=== PATIENT | female | born 1985 | race Two or more races ===

== ENCOUNTER 2022-10-22 12:51 | Inpatient (IN) | payer OTHER ==
[~2022-10-22] VITALS: Ht 152.4 cm; Wt 67.6 kg
[2022-10-22] MEDS ORDERED: SODIUM CHLORIDE 0.9% 500 ML IV ONE (13:30)
[2022-10-22 13:47] LABS: Basophils % (auto) 0.3 % (0.0-2.0); Eosinophils # (auto) 0 10 ^3/uL (0-0.8); Hematocrit 25.7 % (36.0-46.0); Hemoglobin 8.1 g/dL (12.2-16.2); Lymphocytes # (auto) 1.4 10 ^3/uL (0.4-5.4); Mean Corpuscular Hemoglobin 32.2 pg (28.0-32.0); Mean Corpuscular Hgb Conc. 31.5 g/dL (32.0-36.0); Mean Corpuscular Volume 102.2 fL (80.0-100.0)
[2022-10-22 13:49] LABS: Basophils # (auto) 0 10 ^3/uL (0-0.2); Eosinophils % (auto) 0.2 % (0.0-7.0); Lymphocytes % (auto) 8.6 % (10.0-50.0); Monocytes # (auto) 1.8 10 ^3/uL (0-1.3); Monocytes % (auto) 11.4 % (0.0-12.0); Neutrophils # (auto) 12.6 10 ^3/uL (1.6-8.6); Neutrophils % (auto) 79.5 % (37.0-80.0); Red Blood Cells 2.51 10^6/uL (4.0-5.20); Red Cell Distribution Width 18.5 % (11.8-14.3); White Blood Cell 15.9 10^3/uL (4.4-10.8)
[2022-10-22 14:12] LABS: Albumin 2.6 g/dL (3.4-5.0); Calcium 7.6 mg/dL (8.5-10.1); Potassium 3.4 mmol/L (3.5-5.1)
[2022-10-22 14:16] LABS: BUN/Creatinine Ratio 1.9; Bilirubin, Total 1.9 mg/dL (0.2-1.0); Total Protein 7.4 g/dL (6.4-8.2)
[2022-10-22 16:00] LABS: Urine Bacteria FEW /hpf (None Seen); Urine Blood Negative /uL (Negative); Urine Specific Gravity 1.004 (1.001-1.035); Urine WBC 1 /hpf (0 - 5)
[2022-10-22 16:09] LABS: Alcohol, Urine < 3.0 mg/dL (0-10); Amphetamine Screen, Urine NEGATIVE (NEGATIVE); Barbiturate Scree,Urine NEGATIVE (NEGATIVE); Benzodiazephine Screen, Urine NEGATIVE (NEGATIVE); Cannabinoid Screen, Urine NEGATIVE (NEGATIVE); Cocaine Screen, Urine NEGATIVE (NEGATIVE); Opiate Scree,Urine NEGATIVE (NEGATIVE); Phencyclidine Screen, Urine NEGATIVE (NEGATIVE)
[2022-10-22] MEDS: LEVALBUTEROL HCL 1.25 MG/3 ML NEB NEB SCH (18:39)
[2022-10-22] MEDS ORDERED: AZITHROMYCIN 500MG/ 250ML 250 ML IV ONE (19:45)
[2022-10-22] MEDS ORDERED: POTASSIUM CHL 20 Meq TABLET PO ONE (19:45)
[2022-10-22] MEDS ORDERED: DOCUSATE SOD 100 MG CAP PO PRN (21:30)
[2022-10-22] MEDS ORDERED: ACETAMINOPHEN 325 MG TAB PO PRN (21:30)
[2022-10-22] MEDS ORDERED: ONDANSETRON HCL 4 MG/2 ML VIAL IV PRN (21:30)
[2022-10-22] MEDS: ATORVASTATIN 20 MG TAB PO SCH (21:54)
[2022-10-22] MEDS ORDERED: MORPHINE SULFATE INJ 2 MG/ml SYRG IV PRN (23:15)
[2022-10-22] MEDS ORDERED: NITROGLYCERIN 0.4 MG SL TAB SL PRN (23:15)
[2022-10-22] MEDS: SODIUM CHLORIDE 0.9% 1,000 ML IV SCH (23:45)
[2022-10-22] MEDS: cefTRIAXone 1GM/50ML D5W 50 ML IV SCH (23:54)
[2022-10-23 00:10] VITALS: BP 119/72
[2022-10-23] MEDS: LEVALBUTEROL HCL 1.25 MG/3 ML NEB NEB SCH ×4 (06:00→19:02)
[2022-10-23 07:22] LABS: Basophils # (auto) 0.1 10 ^3/uL (0-0.2); Basophils % (auto) 0.4 % (0.0-2.0); Eosinophils # (auto) 0.1 10 ^3/uL (0-0.8); Eosinophils % (auto) 0.4 % (0.0-7.0); Hematocrit 24.7 % (36.0-46.0); Hemoglobin 7.9 g/dL (12.2-16.2); Lymphocytes # (auto) 1.8 10 ^3/uL (0.4-5.4); Lymphocytes % (auto) 11.4 % (10.0-50.0); Mean Corpuscular Hgb Conc. 31.9 g/dL (32.0-36.0); Mean Corpuscular Volume 106.8 fL (80.0-100.0); Monocytes % (auto) 12.4 % (0.0-12.0); Neutrophils % (auto) 75.4 % (37.0-80.0); Red Blood Cells 2.31 10^6/uL (4.0-5.20); Red Cell Distribution Width 18.4 % (11.8-14.3); White Blood Cell 15.9 10^3/uL (4.4-10.8)
[2022-10-23 07:30] LABS: Albumin 2.6 g/dL (3.4-5.0); Calcium 7.5 mg/dL (8.5-10.1); Potassium 3.1 mmol/L (3.5-5.1)
[2022-10-23 07:32] LABS: BUN/Creatinine Ratio 3.6
[2022-10-23 07:41] LABS: Bilirubin, Total 1.8 mg/dL (0.2-1.0); Total Protein 7.9 g/dL (6.4-8.2)
[2022-10-23] MEDS: ASPirin 81 mg TAB PO SCH (09:23)
[2022-10-23] MEDS: SODIUM CHLORIDE 0.9% 1,000 ML IV SCH (09:42)
[2022-10-23] MEDS ORDERED: FAMOTIDINE (10MG/ML) 2ML VL IV SCH (10:00)
[2022-10-23 10:36] VITALS: BP 99/52
[2022-10-23] MEDS ORDERED: MULT1TAB99 PO (11:33)
[2022-10-23 13:00] VITALS: BP 99/52
[2022-10-23 17:00] VITALS: BP 104/61
[2022-10-23 20:00] VITALS: BP 98/55
[2022-10-23] MEDS: ATORVASTATIN 20 MG TAB PO SCH (21:31)
[2022-10-23] MEDS: cefTRIAXone 1GM/50ML D5W 50 ML IV SCH (21:31)
[2022-10-23 22:00] VITALS: BP_SYST 142; BP_SYST 98; BP_DIAS 55; BP_DIAS 72
[2022-10-24] VITALS (8 sets, daily range): BP systolic 93–159; BP diastolic 56–83
[2022-10-24] MEDS: LEVALBUTEROL HCL 1.25 MG/3 ML NEB NEB SCH ×4 (00:07→23:35)
[2022-10-24 06:17] LABS: Basophils # (auto) 0.1 10 ^3/uL (0-0.2); Eosinophils # (auto) 0.1 10 ^3/uL (0-0.8); Hemoglobin 7.5 g/dL (12.2-16.2); Lymphocytes # (auto) 1.7 10 ^3/uL (0.4-5.4); Mean Corpuscular Hgb Conc. 31.8 g/dL (32.0-36.0); Monocytes # (auto) 1.4 10 ^3/uL (0-1.3)
[2022-10-24 06:20] LABS: Basophils % (auto) 0.6 % (0.0-2.0); Eosinophils % (auto) 1.1 % (0.0-7.0); Hematocrit 23.4 % (36.0-46.0); Lymphocytes % (auto) 14.2 % (10.0-50.0); Mean Corpuscular Hemoglobin 32.7 pg (28.0-32.0); Mean Corpuscular Volume 102.7 fL (80.0-100.0); Monocytes % (auto) 11.6 % (0.0-12.0); Neutrophils # (auto) 8.5 10 ^3/uL (1.6-8.6); Neutrophils % (auto) 72.5 % (37.0-80.0); Red Blood Cells 2.28 10^6/uL (4.0-5.20); Red Cell Distribution Width 18.3 % (11.8-14.3); White Blood Cell 11.8 10^3/uL (4.4-10.8)
[2022-10-24] MEDS: SODIUM CHLORIDE 0.9% 1,000 ML IV SCH (06:49)
[2022-10-24] MEDS: ASPirin 81 mg TAB PO SCH (09:23)
[2022-10-24 11:19] LABS: Chloride 106 mmol/L (98-107); Potassium 3.2 mmol/L (3.5-5.1); Sodium 138 mmol/L (136-145)
[2022-10-24 11:42] LABS: Albumin 2.3 g/dL (3.4-5.0); Anion Gap 13 (5-15); BUN/Creatinine Ratio 4.7; Blood Urea Nitrogen 2 mg/dL (7-18); Calcium 7.5 mg/dL (8.5-10.1); Carbon Dioxide 19 mmol/L (21-32); GFR African American 210 mL/min; GFR Non-African American 174 mL/min; Glucose 90 mg/dL (74-106)
[2022-10-24 11:44] LABS: Alanine Aminotransferase 21 U/L (13-56); Alkaline Phosphatase 306 U/L (45-117); Aspartate Aminotransferase 120 U/L (15-37); Bilirubin, Total 1.6 mg/dL (0.2-1.0); Total Protein 6.8 g/dL (6.4-8.2)
[2022-10-24] MEDS ORDERED: POTASSIUM CHL 20 Meq TABLET PO ONE (15:15)
[2022-10-24 17:24] LABS: % Iron Saturation 8.6 % (15-50)
[2022-10-24] MEDS: cefTRIAXone 1GM/50ML D5W 50 ML IV SCH (21:47)
[2022-10-24] MEDS: ATORVASTATIN 20 MG TAB PO SCH (21:47)
[2022-10-24] MEDS: HYDROcodone-ACET 5/325MG TAB PO PRN (21:58)
[2022-10-25] VITALS (7 sets, daily range): BP systolic 99–128; BP diastolic 58–70
[2022-10-25] MEDS: SODIUM CHLORIDE 0.9% 1,000 ML IV SCH ×2 (00:25→16:20)
[2022-10-25] MEDS: HYDROcodone-ACET 5/325MG TAB PO PRN ×2 (06:22→21:31)
[2022-10-25] MEDS: LEVALBUTEROL HCL 1.25 MG/3 ML NEB NEB SCH (06:31)
[2022-10-25] MEDS: ASPirin 81 mg TAB PO SCH (10:30)
[2022-10-25] MEDS ORDERED: LEVALBUTEROL HCL 1.25 MG/3 ML NEB NEB PRN (10:30)
[2022-10-25] MEDS ORDERED: IOHEXOL 350 MG/ML 100ML IJ ONE (10:33)
[2022-10-25] MEDS ORDERED: POTASSIUM EFFERVESENT TAB 25 MEQ PO ONE (13:45)
[2022-10-25 15:09] LABS: Hemoglobin 8.7 g/dL (12.2-16.2)
[2022-10-25 15:18] LABS: Folate (Folic Acid) 5.73 ng/mL (5.38-24)
[2022-10-25] MEDS: MAGNESIUM SULFATE 1GM/100ML 100 ML IV SCH ×3 (21:32→23:30)
[2022-10-25] MEDS: ATORVASTATIN 20 MG TAB PO SCH (21:32)
[2022-10-26] MEDS ORDERED: guaiFENesin-DM 100/10mg/5ml SYR PO PRN (03:15)
[2022-10-26 05:00] VITALS: BP 104/88
[2022-10-26 08:00] VITALS: BP 101/65
[2022-10-26] MEDS: ASPirin 81 mg TAB PO SCH (08:21)
[2022-10-26] MEDS: SODIUM CHLORIDE 0.9% 1,000 ML IV SCH (08:29)
[2022-10-26 09:00] VITALS: BP 101/65
[2022-10-26] MEDS: HYDROcodone-ACET 5/325MG TAB PO PRN ×2 (09:20→16:47)
[2022-10-26 11:03] LABS: Basophils # (auto) 0.1 10 ^3/uL (0-0.2); Eosinophils # (auto) 0.2 10 ^3/uL (0-0.8); Monocytes # (auto) 1.5 10 ^3/uL (0-1.3)
[2022-10-26 11:06] LABS: Basophils % (auto) 0.6 % (0.0-2.0); Eosinophils % (auto) 1.1 % (0.0-7.0); Hematocrit 25.9 % (36.0-46.0); Lymphocytes # (auto) 1.7 10 ^3/uL (0.4-5.4); Lymphocytes % (auto) 11.5 % (10.0-50.0); Mean Corpuscular Hgb Conc. 31.1 g/dL (32.0-36.0); Mean Corpuscular Volume 102.7 fL (80.0-100.0); Monocytes % (auto) 10.5 % (0.0-12.0); Neutrophils # (auto) 11.1 10 ^3/uL (1.6-8.6); Neutrophils % (auto) 76.3 % (37.0-80.0); Red Blood Cells 2.52 10^6/uL (4.0-5.20); White Blood Cell 14.5 10^3/uL (4.4-10.8)
[2022-10-26 11:43] LABS: Albumin 2.4 g/dL (3.4-5.0); BUN/Creatinine Ratio 3.9; Bilirubin, Total 1.4 mg/dL (0.2-1.0); Calcium 7.8 mg/dL (8.5-10.1); Total Protein 7.2 g/dL (6.4-8.2)
[2022-10-26 13:00] VITALS: BP 104/67
[2022-10-26 14:45] VITALS: BP 101/65
[2022-10-26] MEDS ORDERED: METO25TA36 PO (15:58)
[2022-10-26] MEDS ORDERED: AMOX500T86 PO (15:58)
[2022-10-26] MEDS ORDERED: FER325T PO (16:00)
[2022-10-26 16:54] VITALS: BP 104/67
== END 2022-10-26 18:08 | disposition home or self-care (01) | DRG 663 ==
LOC: ER 12:51 → TELE 23:14 → TELE-WESTW 10-23 10:34
PROVIDERS: ADMIT Nurse Practitioner Family; ATTEND Student in an Organized Health Care Education/Training Program
DX: D50.9 Iron deficiency anemia, unspecified (principal); E83.51 Hypocalcemia; R65.10 Systemic inflammatory response syndrome (SIRS) of non-infectious origin without acute organ dysfunction; R07.9 Chest pain, unspecified; E87.1 Hypo-osmolality and hyponatremia; J40 Bronchitis, not specified as acute or chronic; D72.829 Elevated white blood cell count, unspecified; E87.6 Hypokalemia; F41.9 Anxiety disorder, unspecified; R00.0 Tachycardia, unspecified; Z20.822 Contact with and (suspected) exposure to COVID-19; B34.9 Viral infection, unspecified; Z82.49 Family history of ischemic heart disease and other diseases of the circulatory system
CPT/HCPCS: 36415; 71045; 71275; 80053; 80307; 81001; 82607; 82728; 82746; 83540; 83550; 83735; 84443; 84484; 85014; 85018; 85025; 85379; 86850; 86900; 86901; 87040; 87426; 87804; 93005; 93306; 94640; 96361; 96365; 96367; 96375; 99291; G0378; J0696; J2405; J3490